=== PATIENT | male | born 1955 | race Caucasian/White ===

== ENCOUNTER → 2018-02-15 | Outpatient (CLI) | payer BC ==
[~2018-02-15] MED LIST: BETIMOL 2.5 ML2.5 M1 OP; CARDI-OMEGA1000 MG PO; GABAPENTIN300 MG PO; GEMFIBROZIL600 MG PO; MASON NATURAL L20 MG PO; PRESERVISION PO; ST. JOSEPH81 M2 PO
== END ==
LOC: COL.RAD 07:58
DX: I65.23 Occlusion and stenosis of bilateral carotid arteries (principal); H53.9 Unspecified visual disturbance; H93.13 Tinnitus, bilateral; Z86.73 Personal history of transient ischemic attack (TIA), and cerebral infarction without residual deficits
CPT/HCPCS: Q9967

== ENCOUNTER 2021-09-07 13:40 | Emergency (ER) | payer MEDICARE ==
[~2021-09-07] VITALS: Ht 177.8 cm; Wt 100.0 kg
[~2021-09-07 13:40] MED LIST changes: +ALLEGRA 180MG180 MG PO; +ASPIRIN E.C. 8181 MG PO; +BRILINTA90 MG PO; +COZAAR 50MG50 MG/TAB PO; -GABAPENTIN300 MG PO; +LIPITOR 40MG TA40 MG PO; +LUTEIN20 M1 PO; -MASON NATURAL L20 MG PO; +MASON NATURAL1200 MG PO; +NEURONTIN300 MG/CAP PO; +NITROSTAT0.4 MG/TAB SL; +PROSVENT PO; -ST. JOSEPH81 M2 PO; +TOPROL XL 25MG25 MG PO; +[UNRECOGNIZED DRUG - OTHER] PO
[2021-09-07 13:59] VITALS: TEMP 98.4
[2021-09-07 15:13] LABS: HEMATOCRIT 41.9 % (42.0-52.0); HEMOGLOBIN 13.9 g/dl (13.5-18.0); MEAN CELL VOLUME 92 fl (80.0-100.0); MEAN CORPUSCULAR HEMOGLOBIN 31 pg (27-31); MEAN CORPUSCULAR HGB CONC 33 g/dl (33.0-37.0); MEAN PLATELET VOLUME 9.1 fl (7.4-10.4); PLATELET COUNT 195 K/mm3 (130-400); RED BLOOD COUNT 4.55 M/mm3 (4.20-5.60); REDCELL DISTRIBUTION WIDTH-CV 12.9 % (11.5-14.5)
[2021-09-07 15:32] LABS: ALANINE AMINOTRANSFERASE 25 U/L (0-55); ALBUMIN 3.8 gm/dL (3.4-4.8); ALKALINE PHOSPHATASE 48 U/L (40-150); ANION GAP 12 mmol/L (7-16); AST,SGOT 21 U/L (5-34); BILIRUBIN,TOTAL 0.5 mg/dL (0.2-1.2); BLOOD UREA NITROGEN 13 mg/dL (8-26); CALCIUM 8.7 mg/dL (8.4-10.2); CARBON DIOXIDE 21 mmol/L (23-31); CHLORIDE 106 mmol/L (98-107); CREATININE, serum 0.92 mg/dL (0.72-1.25); GLUCOSE 102 mg/dL (70-99); POTASSIUM 3.7 mmol/L (3.5-4.5); SODIUM 139 mmol/L (136-145); TOTAL PROTEIN 7.3 gm/dL (6.2-8.1)
[2021-09-07 15:39] LABS: TROPONIN-I < 0.010 ng/mL (0.00-0.033)
[2021-09-07 15:41] LABS: BAND 5 % (0-10); EOSINOPHIL 1 % (0-4); LYMPHOCYTE 13 % (20.0-51.0); NEUTROPHILS 64 % (42.0-75.2); PLATELET ESTIMATE NORMAL (NORMAL)
[2021-09-07 16:30] VITALS: BP 128/61; PULSE 80
== END 2021-09-07 16:45 | disposition home or self-care (01) ==
LOC: COL.ER 13:40
PROVIDERS: Physician Assistant
DX: U07.1 COVID-19 (principal); J44.9 Chronic obstructive pulmonary disease, unspecified; Z73.0 Burn-out; Z79.51 Long term (current) use of inhaled steroids
CPT/HCPCS: J1100; J1885; J7030; Q0222

== ENCOUNTER → 2023-03-14 | Outpatient (CLI) | payer MEDICARE | LOC: MHCPAIN 09:38 | DX: M47.816 Spondylosis without myelopathy or radiculopathy, lumbar region (principal); M79.2 Neuralgia and neuritis, unspecified | CPT/HCPCS: G0463 ==

== ENCOUNTER → 2023-05-21 | Outpatient (CLI) | payer MEDICARE | LOC: MHCPAIN 09:32 | DX: M47.896 Other spondylosis, lumbar region (principal); M54.16 Radiculopathy, lumbar region; M79.2 Neuralgia and neuritis, unspecified | CPT/HCPCS: G0463 ==

== ENCOUNTER → 2023-06-21 | Outpatient (CLI) | payer MEDICARE ==
[~2023-06-21] MED LIST changes: +Iohexol 300 - 10 ML VIAL ONE; +Lidocaine PF 2% (20 MG/ML) 2 ML VIAL ONE
== END ==
LOC: MHCPAIN 08:55
DX: M54.16 Radiculopathy, lumbar region (principal); M47.896 Other spondylosis, lumbar region
CPT/HCPCS: J1100; Q9967